=== PATIENT | female | born 1940 | race Caucasian/White ===

== ENCOUNTER 2019-10-23 10:27 | Emergency (ER) | payer OTHER ==
[~2019-10-23] VITALS: Ht 162.6 cm; Wt 68.0 kg
[2019-10-23 10:36] VITALS: BP_SYST 158
--- NOTE | 2019-10-23 10:40 | NUR ---
ambulated to bed 3
--- NOTE | 2019-10-23 10:42 | NUR ---
Pt brought by self,A&Ox4,pt presents to ER with abdominal pain and diarrhea x 1 day,skin pink and warm, cap refill <3, VSS, respirations even and unlabored, no vomiting noted, will cont to monitor
--- NOTE | 2019-10-23 10:57 | NUR ---
Dr Lopez at bedside examining patient
[2019-10-23] MEDS ORDERED: NACL 0.9% 1,000 ML IV ONE (11:01)
[2019-10-23] MEDS ORDERED: KETOROLAC TROMETHAMINE 30 MG VIAL IVP ONE (11:15)
--- NOTE | 2019-10-23 11:21 | NUR ---
Pt off the unit for CT
--- NOTE | 2019-10-23 11:28 | NUR ---
Pt return from CT on stable condition.
[2019-10-23 11:40] LABS: BASOPHILS # (AUTO) 0.1 K/uL (0.0-0.2); BASOPHILS % (AUTO) 0.7 % (0.0-2.0); EOSINOPHILS % (AUTO) 0.3 % (0.0-4.0); HEMATOCRIT 37.5 % (36-48); HEMOGLOBIN 12.7 g/dL (12.0-16.0); LYMPHOCYTES % (AUTO) 17.3 % (20.5-51.5); MEAN CORPUSCULAR HEMOGLOBIN 31 pg (27-31); MEAN CORPUSCULAR HGB CONC 34 % (32-36); MEAN CORPUSCULAR VOLUME 92 fL (79.0-98.0); MONOCYTES # (AUTO) 0.9 K/uL (0.0-1.0); MONOCYTES % (AUTO) 8.1 % (1.7-9.3); NEUTROPHILS # (AUTO) 8.4 K/uL (1.8-7.7); NEUTROPHILS % (AUTO) 73.6 % (40.0-70.0); PLATELET COUNT (AUTO) 106 K/uL (130-430); RED BLOOD CELL COUNT(AUTO) 4.08 MIL/uL (4.2-6.2); RED CELL DISTRIBUTION WIDTH 12.8 % (9.0-15.0); WHITE BLOOD COUNT (AUTO) 11.4 K/uL (4.8-10.8)
[2019-10-23 12:23] LABS: ANION GAP 6 (5-15); CALCIUM 8.6 mg/dL (8.4-11.0); CHLORIDE 108 mmol/L (98-107); CREATININE 1.37 mg/dL (0.55-1.30); GLUCOSE 112 mg/dL (70-99); POTASSIUM 3.8 mmol/L (3.5-5.1); SODIUM SERUM 138 mmol/L (136-145); UREA NITROGEN, BLOOD 18 mg/dL (8-21)
[2019-10-23 12:28] LABS: ALANINE AMINOTRANSFERASE 38 U/L (12-78); ALBUMIN 2.7 g/dL (3.4-4.8); ASPARTATE AMINOTRANSFERASE 24 U/L (10-37); LIPASE 113 U/L (73-393); TOTAL BILIRUBIN 0.9 mg/dL (0.0-1.0)
[2019-10-23 13:32] VITALS: BP_SYST 131
--- NOTE | 2019-10-23 13:32 | NUR ---
Patient and Son given written and verbal discharge instructions and verbalizes understanding. ER MD discussed with patient the results and treatment provided. Patient in stable condition. ID arm band removed. IV catheter removed intact and dressing applied, no active bleeding. Rx of immodium, motrin, Cirpo given. Patient educated on pain management and to follow up with PMD. Pain Scale 0/10. Opportunity for questions provided and answered. Medication side effect fact sheet provided.
== END 2019-10-23 13:52 | disposition home or self-care (01) ==
LOC: SED 10:27
DX: R19.7 Diarrhea, unspecified (principal); R10.32 Left lower quadrant pain; I10 Essential (primary) hypertension; Z90.49 Acquired absence of other specified parts of digestive tract; Z90.710 Acquired absence of both cervix and uterus
CPT/HCPCS: 36415; 74176; 80053; 83690; 85025; 96361; 96374; 99284; J1885; J7030

== ENCOUNTER 2021-01-29 14:12 | Inpatient (IN) | payer OTHER, SELFPAY ==
[~2021-01-29] VITALS: Ht 162.6 cm; Wt 70.8 kg
[2021-01-29 14:15] VITALS: BP_SYST 170
[2021-01-29 16:14] LABS: BASOPHILS # (AUTO) 0.1 K/uL (0.0-0.2); BASOPHILS % (AUTO) 0.6 % (0.0-2.0); EOSINOPHILS # (AUTO) 0.3 K/uL (0.0-0.4); EOSINOPHILS % (AUTO) 3.1 % (0.0-4.0); HEMATOCRIT 37.1 % (36-48); HEMOGLOBIN 12.6 g/dL (12.0-16.0); LYMPHOCYTES % (AUTO) 23.2 % (20.5-51.5); MEAN CORPUSCULAR HEMOGLOBIN 31 pg (27-31); MEAN CORPUSCULAR HGB CONC 34 % (32-36); MEAN CORPUSCULAR VOLUME 90 fL (79.0-98.0); MONOCYTES # (AUTO) 0.6 K/uL (0.0-1.0); MONOCYTES % (AUTO) 7.1 % (1.7-9.3); NEUTROPHILS # (AUTO) 5.8 K/uL (1.8-7.7); PLATELET COUNT (AUTO) 231 K/uL (130-430); RED BLOOD CELL COUNT(AUTO) 4.12 MIL/uL (4.2-6.2); WHITE BLOOD COUNT (AUTO) 8.7 K/uL (4.8-10.8)
[2021-01-29] MEDS ORDERED: MORPHINE 4 MG INJ. 4 MG/ML VIAL IVP ONE (16:30)
[2021-01-29 16:42] LABS: ANION GAP 7 (5-15); CALCIUM 9.9 mg/dL (8.4-11.0); CHLORIDE 104 mmol/L (98-107); CREATININE 1.36 mg/dL (0.55-1.30); GLUCOSE 110 mg/dL (70-99); POTASSIUM 4.7 mmol/L (3.5-5.1); SODIUM SERUM 137 mmol/L (136-145); UREA NITROGEN, BLOOD 14 mg/dL (8-21)
[2021-01-29] MEDS ORDERED: AMLO10TA88 PO (16:46)
[2021-01-29] MEDS ORDERED: GABA-529 PO (16:46)
[2021-01-29] MEDS ORDERED: LOSA100T23 PO (16:46)
[2021-01-29] MEDS ORDERED: LIP40 PO (16:46)
[2021-01-29] MEDS ORDERED: CLOP75TA2 PO (16:46)
[2021-01-29] MEDS ORDERED: METO50TA7 PO (16:46)
[2021-01-29] MEDS ORDERED: FLUT55AE (16:46)
[2021-01-29] MEDS ORDERED: [UNRECOGNIZED DRUG - CODE] (16:46)
[2021-01-29] MEDS ORDERED: TERB12CR3 (16:46)
[2021-01-29] MEDS ORDERED: CALC-995 (16:46)
[2021-01-29] MEDS ORDERED: MIRT15TA2 PO (16:46)
[2021-01-29] MEDS ORDERED: ALEN35TA17 PO (16:46)
[2021-01-29] MEDS ORDERED: LEVO75CA5 PO (16:46)
[2021-01-29] MEDS ORDERED: DOXA4TAB3 PO (16:46)
[2021-01-29 16:48] LABS: ALANINE AMINOTRANSFERASE 24 U/L (12-78); ALBUMIN 2.8 g/dL (3.4-4.8); ASPARTATE AMINOTRANSFERASE 22 U/L (10-37); TOTAL BILIRUBIN 0.3 mg/dL (0.0-1.0)
[2021-01-29] MEDS ORDERED: hydrALAZINE HCL 20 MG/ML VIAL ONE (19:08)
[2021-01-29] MEDS ORDERED: hydrALAZINE HCL 20 MG/ML VIAL IVP ONE (19:15)
[2021-01-29 20:33] VITALS: BP_SYST 169
[2021-01-29] MEDS ORDERED: hydrALAZINE HCL 20 MG/ML VIAL IVP PRN (21:00)
[2021-01-29] MEDS ORDERED: HYDROcodone/ACETAMIN 5-325 MG TAB (NORCO/ VICODIN) PO PRN (21:00)
[2021-01-29] MEDS ORDERED: ACETAMINOPHEN 325 MG TABLET PO PRN (21:00)
[2021-01-29] MEDS ORDERED: MORPHINE 4 MG INJ. 4 MG/ML VIAL IVP PRN (21:00)
[2021-01-29] MEDS ORDERED: NALOXONE HCL 0.4 MG/ML AMP (NARCAN) IVP PRN (21:00)
[2021-01-29] MEDS ORDERED: ALBUTEROL SULFATE 0.083% 2.5 MG/3 ML VIAL.NEB INH PRN (21:00)
[2021-01-29] MEDS ORDERED: AZITHROMYCIN 500 MG/VIAL (ZITHROMAX) IV ONE (21:25)
[2021-01-29] MEDS ORDERED: cefTRIAXone 1 GM VIAL ONE (21:25)
[2021-01-29] MEDS: ATORVASTATIN 20 MG TABLET PO SCH (21:37)
[2021-01-29] MEDS: GABAPENTIN 100 MG CAPSULE PO SCH (21:37)
[2021-01-29] MEDS: cefTRIAXone 1 GM IVPB PREMIX 50 ML IV SCH (21:38)
[2021-01-29 23:17] VITALS: BP_SYST 169
[2021-01-29] MEDS: AZITHROMYCIN 500 MG in NS 250 ML IV SCH (23:21)
[2021-01-30 00:46] VITALS: BP_SYST 167
[2021-01-30 03:24] LABS: BILIRUBIN,URINE NEGATIVE (NEGATIVE); BLOOD, URINE NEGATIVE (NEGATIVE); CLARITY/URINE CLEAR (CLEAR); COLOR,URINE YELLOW (YELLOW); GLUCOSE,URINE NEGATIVE (NEGATIVE); KETONES,URINE NEGATIVE (NEGATIVE); LEUKOCYTE ESTERASE ,URINE NEGATIVE (NEGATIVE); NITRITE, URINE NEGATIVE (NEGATIVE); PROTEIN URINE 2+ (NEGATIVE); UROBILINOGEN,URINE 0.2 (0.2-1.0)
[2021-01-30 03:33] LABS: BACTERIA,URINE FEW /HPF (None Seen); RBC,URINE 0-3 /HPF (0-3); WBC,URINE 0-3 /HPF (0-3)
[2021-01-30 06:23] LABS: BASOPHILS # (AUTO) 0.1 K/uL (0.0-0.2); BASOPHILS % (AUTO) 0.7 % (0.0-2.0); EOSINOPHILS # (AUTO) 0.1 K/uL (0.0-0.4); EOSINOPHILS % (AUTO) 0.9 % (0.0-4.0); HEMATOCRIT 35.1 % (36-48); HEMOGLOBIN 11.8 g/dL (12.0-16.0); LYMPHOCYTES # (AUTO) 1.6 K/uL (1.0-5.5); LYMPHOCYTES % (AUTO) 18.6 % (20.5-51.5); MEAN CORPUSCULAR HEMOGLOBIN 31 pg (27-31); MEAN CORPUSCULAR HGB CONC 34 % (32-36); MEAN CORPUSCULAR VOLUME 91 fL (79.0-98.0); MONOCYTES # (AUTO) 0.8 K/uL (0.0-1.0); MONOCYTES % (AUTO) 8.7 % (1.7-9.3); NEUTROPHILS # (AUTO) 6.2 K/uL (1.8-7.7); NEUTROPHILS % (AUTO) 71.1 % (40.0-70.0); PLATELET COUNT (AUTO) 232 K/uL (130-430); RED BLOOD CELL COUNT(AUTO) 3.86 MIL/uL (4.2-6.2); RED CELL DISTRIBUTION WIDTH 12.7 % (9.0-15.0); WHITE BLOOD COUNT (AUTO) 8.7 K/uL (4.8-10.8)
[2021-01-30] MEDS: LEVOTHYROXINE SODIUM 0.075 MG TABLET PO SCH (06:49)
[2021-01-30 06:58] LABS: ALANINE AMINOTRANSFERASE 20 U/L (12-78); ALBUMIN 2.5 g/dL (3.4-4.8); ANION GAP 9 (5-15); ASPARTATE AMINOTRANSFERASE 19 U/L (10-37); CALCIUM 9.5 mg/dL (8.4-11.0); CHLORIDE 106 mmol/L (98-107); CREATININE 1.33 mg/dL (0.55-1.30); GLUCOSE 103 mg/dL (70-99); SODIUM SERUM 139 mmol/L (136-145); TOTAL BILIRUBIN 0.2 mg/dL (0.0-1.0); UREA NITROGEN, BLOOD 16 mg/dL (8-21)
[2021-01-30 08:00] VITALS: BP_SYST 175
[2021-01-30] MEDS: CLOPIDOGREL BISULFATE 75 MG TABLET PO SCH (08:38)
[2021-01-30] MEDS: METOPROLOL SUCCINATE 50 MG TAB.SR.24H (TOPROL XL) PO SCH (08:39)
[2021-01-30] MEDS: amLODIPine BESYLATE 10 MG TABLET PO SCH (08:39)
[2021-01-30] MEDS: LOSARTAN POTASSIUM 25 MG TABLET PO SCH (08:40)
[2021-01-30 12:00] VITALS: BP_SYST 172
[2021-01-30 16:00] VITALS: BP_SYST 166
[2021-01-30 17:09] LABS: BODY FLUID GLUCOSE 122 mg/dL; BODY FLUID TOTAL PROTEIN 3.9 g/dL
[2021-01-30 20:00] VITALS: BP_SYST 146
[2021-01-30] MEDS: GABAPENTIN 100 MG CAPSULE PO SCH (20:05)
[2021-01-30] MEDS: ATORVASTATIN 20 MG TABLET PO SCH (20:05)
[2021-01-30] MEDS: cefTRIAXone 1 GM IVPB PREMIX 50 ML IV SCH (20:05)
[2021-01-30] MEDS: AZITHROMYCIN 500 MG in NS 250 ML IV SCH (20:56)
[2021-01-31] VITALS: BP_SYST 143
[2021-01-31] MEDS: LEVOTHYROXINE SODIUM 0.075 MG TABLET PO SCH (06:09)
[2021-01-31 08:11] VITALS: BP_SYST 129; BP_SYST 134
[2021-01-31] MEDS: LOSARTAN POTASSIUM 25 MG TABLET PO SCH (08:51)
[2021-01-31] MEDS: CLOPIDOGREL BISULFATE 75 MG TABLET PO SCH (08:52)
[2021-01-31] MEDS: amLODIPine BESYLATE 10 MG TABLET PO SCH (08:52)
[2021-01-31] MEDS: METOPROLOL SUCCINATE 50 MG TAB.SR.24H (TOPROL XL) PO SCH (08:57)
[2021-01-31 11:19] VITALS: BP_SYST 136
[2021-02-01 00:08] LABS: PH, BODY FLUID >7
== END 2021-01-31 16:50 | disposition home health service (06) | DRG 180 ==
LOC: SED 14:12 → STU 18:46
PROVIDERS: ADMIT Internal Medicine Hospice and Palliative Medicine; ATTEND Internal Medicine Hospice and Palliative Medicine
PROC: 0W993ZZ Drainage of Right Pleural Cavity, Percutaneous Approach (ICD-10-PCS; principal; 2021-01-30)
DX: C34.90 Malignant neoplasm of unspecified part of unspecified bronchus or lung (principal); J96.01 Acute respiratory failure with hypoxia; J90 Pleural effusion, not elsewhere classified; I16.1 Hypertensive emergency; E03.9 Hypothyroidism, unspecified; E78.5 Hyperlipidemia, unspecified; I10 Essential (primary) hypertension; Z20.822 Contact with and (suspected) exposure to COVID-19; I25.10 Atherosclerotic heart disease of native coronary artery without angina pectoris; M81.0 Age-related osteoporosis without current pathological fracture; Z82.49 Family history of ischemic heart disease and other diseases of the circulatory system; Z85.118 Personal history of other malignant neoplasm of bronchus and lung; Z85.3 Personal history of malignant neoplasm of breast; Z86.73 Personal history of transient ischemic attack (TIA), and cerebral infarction without residual deficits; Z87.891 Personal history of nicotine dependence; Z90.13 Acquired absence of bilateral breasts and nipples; Z79.899 Other long term (current) drug therapy
CPT/HCPCS: 32555; 36415; 71045; 71250-TC; 76376; 80053; 81000-TC; 82042; 82947-TC; 83880; 83986-TC; 84157-TC; 84484; 85025; 85610-TC; 85730-TC; 87070-TC; 87081; 93005; 96374; 96375; G0378; J0360; J0456; J0696; J2270; J7050